=== PATIENT | male | born 2000 | race Caucasian/White ===

== ENCOUNTER 2019-07-08 03:05 | Emergency (ER) | payer SELFPAY ==
[~2019-07-08] VITALS: Ht 170.2 cm; Wt 77.0 kg
[2019-07-08 03:19] VITALS: BP 125/81
[2019-07-08] MEDS ORDERED: IBUPROFEN 600MG TABLET PO ONE (03:45)
== END 2019-07-08 05:12 | disposition home or self-care (01) ==
LOC: ER 03:05
DX: N50.3 Cyst of epididymis (principal)
CPT/HCPCS: 76870; 93976; 99284